=== PATIENT | male | born 1960 | race Caucasian/White ===

== ENCOUNTER 2016-11-17 10:34 | Day surgery (SDC) | payer SELFPAY ==
--- NOTE | 2016-11-16 13:40 | NUR ---
CARDIAC REPORTED CHEST PAIN IN JUNE FROM PATIENT TO ADRIAN VALENZUELA MAGAZINE EDITOR,NO OTHER HEALTH ISSUES, NO MEDS, PATIENT STATES HE HAD A STRESS TEST AND THAT CAME OUT NEGATIVE. MAGAZINE EDITOR STATES NO NEED FOR CARDIAC CLEARANCE.
[2016-11-17] VITALS (24 sets, daily range): BP systolic 95–153; BP diastolic 58–88; PULSE 43–69; RESP 14–20; TEMP 96.7–98.4; O2SAT 96–99; Ht 180.3 cm; Wt 79.7 kg
[~2016-11-17] VITALS: Ht 180.3 cm; Wt 79.7 kg
[~2016-11-17 10:34] MED LIST: LIDOCAINE 1% (10mg/ml) 2ml SDV INJ ONE; LR 1,000 ML IV SCH; MULT-933 PO
--- OUTSIDE RECORDS SUMMARY | 2016-11-17 10:38 | XMS REPORT ---
Author Author [facility]. Organization [facility] Address [address] [place] [address] Phone [phone] Summary purpose CCDA Sent to [facility] Chief Complaint and Reason for Visit No authorized Reason for Visit (Admitting Diagnosis) is available for this visit. Problem list No authorized problems tracked for continuity of care are available for this visit. Encounters No authorized problems tracked for encounter diagnoses are available for this visit. Medications No medications recorded for this patient visit Allergies, adverse reactions, alerts Allergen Category Ingredient Status Reaction Severity Onset No Known Food Allergy No Known Food Allergy No Known Food Allergy Active Opiates Drug Opiates Active Immunizations No immunizations recorded for this patient visit Relevant diagnostic tests and/or laboratory data No authorized results are available for this patient visit History of procedures No procedures recorded for this patient visit. Functional status No functional or cognitive status observations are available for this visit. Vital signs Type Value Date Respirations 16 :01 Pulse 86 :01 O2 Saturation 96% :01 Systolic Blood Press 141mm/HG :01 Diastolic Blood Pres 93mm/HG :01 Temperature (Fahr) 97.7Degrees 04-45-302082:52 Social history No Social History or smoking status observations were recorded for this visit. ( Unknown if ever smoked.) Treatment Plan No treatment plan text is available for this visit. Hospital discharge instructions No discharge instruction text is available for this visit.
--- OUTSIDE RECORDS SUMMARY | 2016-11-17 10:38 | XMS REPORT ---
Author Author [facility] Organization [facility] Address [address] [place] [address] Phone [phone] Summary purpose CCDA Sent to [facility] Chief Complaint and Reason for Visit Admit Diagnosis 1 CHEST PAIN Problem list No authorized problems tracked for [...] visit Relevant diagnostic tests and/or laboratory data RESULTS CBC :45:00 Result Normal Range Units WBC L 5.46 5.8-10.8 x103/mm3 Neutrophil % 53.1 50-70 % Lymph % 35.9 20-50 % Alexander % H 9.9 1.0-9.0 % Eosinophil % 0.7 0-4 % Basophil % 0.4 0-2 % Neutrophil # L 2.90 3.0-7.0 x103/mm3 Lymph # 1.96 1.0-4.0 x103/mm3 Alexander # 0.54 0.0-0.8 x103/mm3 Eosinophil # 0.04 0-0.5 x103/mm3 Basophil # 0.02 0-0.2 x103/mm3 RBC 4.95 4.60-6.20 x103/mm3 HGB 14.4 14.0-18.0 g/dl HCT 42.4 42.0-52.0 % MCV 85.7 80-94 FL MCH 29.1 27.0-31.0 pg MCHC 34.0 32.0-36.0 g/dl RDW 13.1 12-15 % Platelet 219 150-400 x103/mm3 MPV 8.5 6.0-10.0 FL Chemistry Group :45:00 Result Normal Range Units Sodium 142 134-145 mmol/L Potassium 4.4 3.6-5.0 mmol/L Chloride 103 98-107 mmol/L CO2 H 31 22-30 mmol/L Glucose 96 75-110 mg/dl BUN 16 9-20 mg/dl Creatinine .90 0.8-1.7 mg/dl eGFR 87 ml/min. Total Protein 7.8 6.3-8.2 g/dl Albumin 4.4 3.5-5.0 g/dl Calcium 9.5 8.4-10.2 mg/dl Alk Phos 49 38-126 U/L AST 25 14-36 U/L ALT 31 11-66 U/L T Bili .8 0.2-1.3 mg/dl A/G Ratio 1.3 Ratio Special Chemistry Group :45:00 Result Normal Range Units Troponin I < 0.06 ng/ml NEGATIVE - 0.06-0.30 ng/ml INCONCLUSIVE - 0.31-0.64 ng/ml; Suggest Repeating in 2-4 hours POSITIVE - >0.64 ng/ml; Probable AMI History of procedures No procedures recorded for this patient visit. Functional status Cognitive Status Finding Observation Time Level of Consciousne Alert :30 Oriented to Person Yes :[address] Yes :30 Oriented to Time Yes :30 Vital signs Type Value Date Respirations 14 :05 Pulse 62 :05 O2 Saturation 99% 70-26-748550:05 Systolic Blood Press 135mm/HG 70-02-723249:05 Diastolic Blood Pres 76mm/HG 82-97-656105:05 Temperature (Fahr) 98.6Degrees :24 Social history Type Value Smoking Status NEVER SMOKER Treatment Plan No treatment plan text is available for this visit. Hospital discharge instructions No discharge instruction text is available for this visit.
--- OUTSIDE RECORDS SUMMARY | 2016-11-17 10:38 | XMS REPORT | Continuity of Care Document ---
Author Author [facility] [employer]. Organization [facility] Address Unknown Phone Unavailable Allergies Active Description Code Type Severity Reaction Onset Reported/Identified Relationship to Patient Clinical Status Yes No Known Drug Allergy [id number] Drug Allergy N/A N/A 07/12/2016 Confirmed but inactive Yes No Known Food Allergy NO KNOWN FOOD ALLERG NF N/A N/A 07/12/2016 Confirmed or Verified Yes Opiates OPIATES Drug Allergy N/A N/A 07/20/2016 Confirmed or Verified Medications Problems Date Dx Coded Attending Type Code Diagnosis Diagnosed By 07/12/2016 ALAN URRUTIA MD R07.9 Chest pain, unspecified 07/20/2016 GEO JAQUEZ MD R07.89 Other chest pain 07/20/2016 GEO JAQUEZ MD Z82.49 Family hx of ischem heart dis and oth dis of the circ sys Procedures Code [place] [id number] ROUTINE VENIPUNCTURE ALAN URRUTIA MD 07/12/2016 [id number] CHEST X-RAY ALAN URRUTIA MD 07/12/2016 05332 COMPREHEN METABOLIC PANEL ALAN URRUTIA MD 07/12/2016 [id number] ASSAY OF TROPONIN, QUANT ALAN URRUTIA MD 07/12/2016 22204 COMPLETE CBC, AUTOMATED ALAN URRUTIA MD 07/12/2016 [id number] ELECTROCARDIOGRAM, TRACING ALAN URRUTIA MD 07/12/2016 [id number] EMERGENCY DEPT VISIT ALAN URRUTIA MD 07/12/2016 [id number] CARDIOVASCULAR STRESS TEST GEO JAQUEZ MD 07/20/2016 Results Test Result Range CBC - 07/12/16 17:05 Eos # 0.04 x10^3 0-0.5 Eos % 0.7 % 0-4 HCT 42.4 % 42.0-52.0 HGB 14.4 G/DL 14.0-18.0 Lymph # 1.96 x10^3 1.0-4.0 Lymph % 35.9 % 20-50 MCH 29.1 PG 27.0-31.0 MCHC 34.0 G/DL 32.0-36.0 MCV 85.7 FL 80-94 [place] # 0.54 x10^3 0.0-0.8 [place] % 9.9 % 1.0-9.0 MPV 8.5 FL 6.0-10.0 Platelet 219 x10^3 150-400 RBC 4.95 x10^3 4.60-6.20 RDW 13.1 % 12-15 WBC 5.46 x10^3 5.8-10.8 Baso # 0.02 x10^3 0-0.2 Baso % 0.4 % 0-2 Neut % 53.1 % 50-70 Neut # 2.90 x10^3 3.0-7.0 Troponin I - 07/12/16 17:12 Troponin I < 0.06 NG/ML Comprehensive Metabolic Panel - 07/12/16 17:12 Sodium 142 MMOLL 134-145 Potassium 4.4 MMOLL 3.6-5.0 Chloride 103 MMOLL 98-107 CO2 31 MMOLL 22-30 Glucose 96 MG/DL 75-110 BUN 16 MG/DL 9-20 Creatinine .90 MG/DL 0.8-1.7 Calcium 9.5 MG/DL 8.4-10.2 T Bili .8 MG/DL 0.2-1.3 T. Protein 7.8 G/DL 6.3-8.2 A/G Ratio 1.3 RATIO Albumin 4.4 G/DL 3.5-5.0 Alk Phos 49 U/L 38-126 ALT 31 U/L 11-66 AST 25 U/L 14-36 EGFR 87 MLMIN Encounters ACCT No. Visit Date/Time Discharge Status Pt. Type Provider Facility Loc./Unit Complaint [id number] 07/20/2016 07:30:00 07/20/2016 09:04:00 DIS Outpatient GISELE GIVENS, GEO [facility] [id number] 07/12/2016 16:24:00 07/12/2016 18:10:00 DIS Emergency NIKKI RAMIRES MD, ALAN R [facility] ER
[2016-11-17] MEDS ORDERED: FAMOTIDINE 20mg in NS 50ml IV ONE (12:00)
--- NOTE | 2016-11-17 12:01 | ANESPREOP ---
Anesthesia Record Date and Time DATE: 11/17/16 TIME: 12:00 Proposed Surgical Procedure ROBOTIC LAP RT ING HERNIA REPAIR NPO since: 2214 Allergies: Coded Allergies: Opioids - Morphine Analogues (Verified Adverse Reaction, Severe, NAUSEA & VOMITING, 11/17/16) SEVERE NAUSEA AND VOMITING, LETHARGIC Ht/Wt/BMI Height: 5 ' 11.00 " Weight: 79.700 kg BMI: 24.5 kg/m2 Vital Signs Date Time Temp Pulse Resp B/P Pulse Ox O2 Delivery O2 Flow Rate FiO2 11/17/16 10:50 98.4 51 14 149/79 97 Room Air Medications Inpatient Medications Current Medications Medications (Trade) Dose Ordered Sig/Quan Start Time Stop Time Status Last Admin Dose Admin Lactated Ringer's (Lactated Ringers) 1,000 ml @ 30 mls/hr Q24H 11/17/16 07:00 11/17/16 11:23 30 MLS/HR Multivitamin (Multi-Day Vitamins) 1 Each Tablet, 1 TAB PO DAILY, (Reported) Last Taken: on 11/15/16 Currently on Beta Gregory: No Medical/Surgical History Anesthesia PMH: Reports: *Angina (JUN [address] GISELE [facility] IT WAS ALL CLEAR, STRESS TEST JUNE 2016, NEGATIVE PER PATIENT) Smoking Status: Never smoker Use Chewing Tobacco?: No Second Hand Exposure: No Substance Use Type: does not use Alcohol Intake: none Past Surgical History Orthopedic Surgeries: Yes - L KNEE X2, R KNEE SCOPE Abdominal Surgeries: Genitourinary Surgeries: Cardiac Surgeries: Endocrine Surgeries: Reproductive Surgeries: Neurological Surgeries: Ear Surgeries: Nose Surgeries: Throat Surgeries: Yes - TONSILLECTOMY Other Surgeries: Anesthesia Adverse Reactions: FOUND none Family Hx of Anesthesia Advers: none Hx of Motion Sickness: No Physical Exam Respiratory: Bilat breath sounds equal, Lungs clear Cardiovascular: FOUND Regular rate, rhythm Airway Assessment Mallampati Score: II TMD: 3 Fingerbreadths Neck Extension: Good Overall Assessment: No Airway Concerns ASA: 2 Plan Anesthesia Plan: GETA Discussion Discussed risks/options/alternatives of anesthesia and questions answered. Patient consents. Nursing pain assessment noted. Present: Family Member Attestation Statement Prior to the delivery of any anesthetic medication, I examined the patient, developed the plan, obtained the patient's consent and discussed the risk and benefits of the procedure with the patient/guardian. BEULAH ARMIJO CRNA Nov 17, 2016 12:01
[2016-11-17] MEDS ORDERED: KETAMINE 500mg/10ml INJECTION ONE (12:07)
[2016-11-17] MEDS ORDERED: ROCURONIUM 50mg/5ml INJECTION IV ONE (12:08)
[2016-11-17] MEDS ORDERED: LIDOCAINE 2% (20mg/ml) 5ml PF SDV ONE (12:08)
[2016-11-17] MEDS ORDERED: PROPOFOL 200mg 20 ML IV ONE (12:08)
[2016-11-17] MEDS: MIDAZOLAM 2mg/2ml INJECTION IV PRN ×2 (12:11→12:29)
--- NOTE | 2016-11-17 12:29 | NUR ---
Versed/Emar EMAR shows Versed 2mg IV administered at 1229. This RN administer Versed 1mg IV at this time. Total Versed IV administered in preop: 3mg for TAP block.
[2016-11-17] MEDS ORDERED: ACETAMINOPHEN 1,000mg Injection IV ONE (12:30)
[2016-11-17] MEDS ORDERED: FAMOTIDINE 20mg IVPB 50 ML IV ONE (12:30)
[2016-11-17] MEDS ORDERED: LIDOCAINE JELLY 2% 30ml TUBE ONE (12:43)
[2016-11-17] MEDS ORDERED: SCOPOLAMINE 1.5 MG PATCH TD ONE (12:45)
--- NOTE | 2016-11-17 12:48 | ANESPD ---
Peripheral Nerve Blockade Physician: Alex Burch MD,Facs,Cws Date: 11/17/16 Surgical Procedure: ROBOT RIGHT INGUINAL HERNIA REPAIR Discussion Discussed risks/options/alternatives of anesthesia and questions answered. Patient consents. Nursing pain assessment noted. Block Start: 12:17 (TIME OUT) Block Stop: 12:37 Block Employed: TAP Block, Single Injection Indication: post-operative pain Approach: bilateral sides confirmed Position: supine Patient: Consent, risks/benefits discussed, Informed, post block act. discussed Monitors: EKG, SpO2, NIBP IV Sedation: Yes Sedation: sedate w/meaningful contact Midazolam (mg): 3 Initial Vital Signs First Documented Vital Signs Date Time Temp Pulse Resp B/P Pulse Ox O2 Delivery O2 Flow Rate FiO2 11/17/16 10:50 98.4 51 14 149/79 97 Room Air Post Vital Signs Vital Signs Date Time Temp Pulse Resp B/P Pulse Ox O2 Delivery O2 Flow Rate FiO2 11/17/16 10:50 98.4 51 14 149/79 97 Room Air Prep: chlorhexadine/ETOH, sterile technique Ultrasound Used?: Yes Nerve Simulator Needle Depth: 3 Muscle Response: No Parathesia/Pain: none Injectate Ropivacaine (%): 0.2 Ropivacaine (mL): 30 (TOTAL DOSE 60 ML FOR BILATERAL SIDE.) Was Epi 1:200,000 Used?: No Injection Injection made incrementally with constant monitoring and aspiration every [5] ml. BEULAH ARMIJO CRNA Nov 17, 2016 12:45
[2016-11-17] MEDS ORDERED: DEXAMETHASONE 4mg/ml - 1ml INJECTION ONE (12:53)
[2016-11-17] MEDS ORDERED: METOCLOPRAMIDE 10mg/2ml INJECTION ONE (12:53)
[2016-11-17] MEDS ORDERED: ONDANSETRON 4mg/2ml INJECTION ONE (12:53)
[2016-11-17] MEDS ORDERED: BUPIVACAINE 0.25%/EPI 1:200,000 30ml SDV ONE (13:04)
[2016-11-17] MEDS ORDERED: ROPIVACAINE 0.2% (2mg/ml) 20ml INJ INJ ONE (13:30)
[2016-11-17] MEDS ORDERED: GLYCOPYRROLATE 0.4mg/2ml INJECTION ONE (13:38)
[2016-11-17] MEDS ORDERED: CEFAZOLIN 1 GRAM INJECTION IV ONE (14:00)
[2016-11-17] MEDS ORDERED: SUGAMMADEX 200 MG/2 ML INJECTION IV ONE (14:17)
[2016-11-17] MEDS ORDERED: KETOROLAC 30mg/ml INJECTION ONE (14:19)
[2016-11-17] MEDS ORDERED: LR 1,000 ML IV SCH (14:27)
[2016-11-17] MEDS ORDERED: IBUPROFEN 800 MG TABLET PO PRN (14:30)
[2016-11-17] MEDS ORDERED: ACETAMINOPHEN 500 MG TABLET PO PRN (14:30)
[2016-11-17] MEDS ORDERED: ONDANSETRON 4mg/2ml INJECTION IV PRN (14:30)
--- NOTE | 2016-11-17 14:31 | GSPOSTPROC ---
Immediate Operative Note DATE: 11/17/16 TIME: 14:30 Postop Diagnosis: Right inguinal hernia Surgery Type: Laparoscopic, Robotic Surgery Lateral: Right Surgical Procedure: Hernia Repair Hernia Type: Inguinal Surgeon: Farrah Assisting Surgeon: Sher Ramirez Anesthesia: Local, General ASA: 2 YUVAL RAMIREZ APRN Nov 17, 2016 14:31
[2016-11-17] MEDS ORDERED: ACET-2723 PO (14:37)
[2016-11-17] MEDS ORDERED: IBUP-1547 PO (14:37)
--- NOTE | 2016-11-17 14:50 | ANESPO ---
Post-Op Note Date 11/17/16 Time: 14:49 Status Pt Participated in Evaluation: Pt participated in person Vital Signs Date Time Temp Pulse Resp B/P Pulse Ox O2 Delivery O2 Flow Rate FiO2 11/17/16 12:41 11/17/16 12:35 60 14 97 Room Air 11/17/16 10:50 98.4 Respiratory Function: Airway patent, Regular respirations Cardiovascular Function: Regular pulse Telemetry Pattern: SB Mental Status: Alert/oriented Pain Level Intensity: 0 Hydration: IV infusing Complications during Recovery None apparent Follow-Up Instructions Instructions Per Surgeon JASMINE ESQUIVEL CRNA Nov 17, 2016 14:50
--- NOTE | 2016-11-17 15:17 | NUR ---
Admit Pt transferred self from cart to bed at this time. VS stable on RA. Pt denies nausea, rating pain a 4/10. Pt encouraged to have PO intake when more awake so this RN could give PRN pain medication. Family present in room at time of transfer. Post op VS started. Bed alarm on, call light w/in reach, side rails up x2.
--- NOTE | 2016-11-17 18:05 | NUR ---
DISCHARGE PATIENT IS ALERT AND ORIENTED X3. PATIENT VITALS ARE STABLE AND PATIENT IS ON ROOM AIR. PATIENT DISCHARGE INSTRUCTIONS INCLUDE: CONTINUED MEDICATION, NEW MEDICATIONS, REASONS TO CALL DOCTOR AND/OR SEEK IMMEDIATE ATTENTION, INCISION CARE, SIGNS AND SYMPTOMS OF INFECTION, FOLLOW UP APPOINTMENT, ACTIVITY, BATHING, AND DIET. PERSONAL BELONGINGS RETURNED AND ID BAND REMOVED. PATIENT LEFT VIA WHEELCHAIR THROUGH ER ENTRANCE AND WITH THIS NURSE. PATIENT WAS TRANSPORTED HOME FOR SELF CARE BY .
--- NOTE | 2016-11-18 09:14 | OPNOTEF ---
DATE OF PROCEDURE 11/17/2016 SURGEON Alex Yan MD TOLL COLLECTOR Sher Ramirez APRN PREOPERATIVE DIAGNOSIS Symptomatic right inguinal hernia. POSTOPERATIVE DIAGNOSIS Symptomatic right inguinal hernia. PROCEDURE Robotic-assisted laparoscopic transabdominal preperitoneal repair of right inguinal hernia with incorporation of mesh. ANESTHESIA General endotracheal. EBL AND FLUIDS Mr. Kelley is a 56-year-old gentleman who recently presented my office as a result of a painful "lump" within his right inguinal region. Upon examination the patient was indeed found to have a mass within the right inguinal region which increased upon cough and Valsalva consistent with that of a right inguinal hernia. The patient presents today to undergo an elective repair. For completeness, please refer to notes in the patient's chart. FINDINGS Upon laparoscopy there was no evidence for a left inguinal hernia. The patient was found have a moderate-sized indirect right inguinal hernia. A standard transabdominal preperitoneal repair of this right inguinal hernia was performed without incident. Small bowel, omentum, colon, peritoneal surfaces which were visualized were within normal limits. DESCRIPTION OF PROCEDURE After informed consent was obtained, the patient was brought to the operative suite and placed on the table in supine fashion. The abdomen and inguinal regions were then prepped and draped in sterile fashion. Formal time-out was then completed. Next 0.25% Marcaine with epinephrine was injected just above the umbilicus. A 2-cm incision was made overlying the area of analgesia. Dissection was carried down through deep subcuticular tissues to underlying fascia. Fascia was then grasped with two Elmira clamps, retracted anteriorly. A 1-cm incision was then made between the two [place]mira clamps. A hemostat was then introduced and the fascial incision gently spread. A U-stitch was placed with 0 Vicryl. A 12 mm port was then placed through the fascial opening into the peritoneal cavity. Pneumoperitoneum was established to a patient pressure of 15 mmHg utilizing carbon dioxide. Next, two additional 8-mm ports were then placed within the right upper quadrant and left upper quadrant under direct visualization. Each port site was preinjected with 0.25% Marcaine with epinephrine and placed under direct visualization. Abdominal cavity was explored via laparoscopic. Findings were as noted above. There was no evidence for a left inguinal hernia. The patient was found to have a moderate-sized indirect right inguinal hernia. As stated above, the small bowel, colon, peritoneal surfaces, omentum which was visualized were within normal limits. The patient was placed in a slight Trendelenburg position. The robot was then docked along the patient's right side. Next, I had my engineer first assistant palpate just medial to the right anterior iliac spine. Peritoneum was then incised at this location with electrocautery utilizing scissors. Peritoneum was then continued to be incised medial to midline. Next, a preperitoneal dissection was then carried out in a cephalad-caudad direction. First, dissection was carried out medial to the hernia sac overlying the anatomic location of the pubic symphysis and Gray's ligament. Dissection was continued until one could clearly see Gray's ligament and the pubic symphysis. Next, dissection was then carried out laterally along the edge of the hernia sac itself. Preperitoneal plane was created. Next, the peritoneum was then grasped and retracted in a caudad and slightly cephalad fashion. The indirect hernia sac was then carefully and meticulously dissected away from the cord structures. The peritoneum was then continued to be dissected at this point in time from a caudad to cephalad direction off of the cord structures. One could see the right vas deferens and the spermatic cord structures. There was a small cord lipoma/preperitoneal fat that was also dissected away from the cord structures. Once the preperitoneal plane had been completely developed, attention was then directed towards incorporation of the mesh. At the beginning of the case, before docking the robot, I did place a 2-0 Vicryl suture and 2-0 V-Loc suture as well in conjunction with a 3DMax Bard piece of mesh. The 3DMax Bard mesh was then placed within the preperitoneal space and oriented in the appropriate fashion. The M-rosita on the 3DMax was placed just cephalad to pubic symphysis region. The inferior edge of the mesh was then imbricated to Gray's ligament utilizing 3-0 Vicryl suture. One suture was placed on Gray's ligament and the second was placed near the pubic symphysis. Next, an additional single interrupted suture of Vicryl was placed just medial to the epigastric via vessels as well as just lateral to the epigastric vessels. No sutures were placed out laterally upon the mesh. The mesh was placed in such a fashion that it covered the indirect fascial defect by several centimeters circumferentially. This also covered future sites of potential hernias including the femoral region as well as medial to the epigastric vessels. Prior areas of dissection were inspected and found to be hemostatic in nature. Attention was directed towards closure. Peritoneum was closed in a running fashion utilizing the 2-0 V-Loc suture. A portion of the suture line was oversewn as well locking the suture. The needles that were utilized were then removed via my engineer first assistant through the right lateral port. Robot was then completely undocked and removed away from the patient. Ports were then removed under visualization. Previously placed U stitch was then secured imbricating the fascia at the supraumbilical port site. All skin incisions were then closed in a subcuticular fashion with 4-0 Monocryl. The patient tolerated the procedure without difficulty and is in the process of awakening from his anesthetic and will be sent back to the recovery room once deemed in stable condition. Additionally, it should be noted that Sher Ramirez APRN, was present throughout the entire case and played a pivotal role in providing assistance and exposure during the course of the procedure. AREN
[2016-11-20] MEDS ORDERED: SCOPOLAMINE PATCH REMOVAL TD SCH (13:15)
== END 2016-11-17 18:05 | disposition home or self-care (01) ==
LOC: SCU 10:34 → SRG 10:34 → SCU 18:05
PROVIDERS: ATTEND Surgery
DX: K40.90 Unilateral inguinal hernia, without obstruction or gangrene, not specified as recurrent (principal); D17.6 Benign lipomatous neoplasm of spermatic cord
CPT/HCPCS: 49650; S2900